=== PATIENT | female | born 1975 | race Two or more races ===

== ENCOUNTER 2020-05-03 08:18 | Inpatient (IN) | payer MEDICAID, OTHER ==
[~2020-05-03] VITALS: Ht 165.1 cm; Wt 81.6 kg
[2020-05-03 09:17] LABS: MEAN CORPUSCULAR HEMOGLOBIN 16.8 pg (28.0-32.0); MEAN CORPUSCULAR VOLUME 60.8 fL (81.0-99.0); MEAN PLATELET VOLUME 8.5 fl (7.4-10.4); PLATELET 330 x1000/uL (130-400); RED BLOOD CELL COUNT 3.42 mill/uL (4.2-5.4); RED CELL DISTRIBUTION WIDTH 22.5 % (11.6-14.6)
[2020-05-03 09:24] LABS: CHLORIDE 108 mEq/L (98-107); HEMATOCRIT. 20.8 % (36.0-48.0); HEMOGLOBIN. 5.8 g/dL (12.0-16.0)
[2020-05-03 09:27] LABS: PROTHROMBIN TIME 10.2 sec (9.6-11.0)
[2020-05-03 09:28] LABS: ETHANOL BLOOD < 10 mg/dL
[2020-05-03 09:46] LABS: NUCLEATED RED BLOOD CELLS 1 /100 WBC
[2020-05-03 09:47] LABS: PLATELET ESTIMATE NORMAL
[2020-05-03 10:08] LABS: HCG SCREEN NEGATIVE
[2020-05-03] MEDS ORDERED: MORPHINE SULFATE 4 MG/ML CPJ (NOT FOR IM USE) IV ONE ×2 (12:00→15:45)
[2020-05-03 12:36] LABS: CLARITY URINE CLOUDY (CLEAR); COLOR URINE RED (YELLOW); KETONES URINE NEGATIVE (NEGATIVE); LEUKOCYTE ESTERASE URINE 2+ (NEGATIVE); NITRITE URINE NEGATIVE (NEGATIVE); OCCULT BLOOD URINE 3+ (NEGATIVE); PH URINE 8.5 (4.5-8.0); PROTEIN URINE 2+ (NEGATIVE); SPECIFIC GRAVITY URINE 1.023 (1.005-1.030); UROBILINOGEN URINE 0.2 E.U./dL (0.2-1.0)
[2020-05-03] MEDS ORDERED: CEFTRIAXONE 1 G PREMIX 50 ML IV ONE (14:30)
[2020-05-03] MEDS ORDERED: IOHEXOL-300 100 ML BOTTLE ONE (14:47)
[2020-05-03 18:15] VITALS: BP 131/63
[2020-05-03 20:00] VITALS: BP 129/68
[2020-05-03 20:02] LABS: HEMATOCRIT 24.5 % (36.0-48.0); HEMOGLOBIN 7.6 g/dL (12.0-16.0)
[2020-05-03] MEDS: IBUPROFEN 800MG TABLET PO PRN (20:37)
[2020-05-04] VITALS (12 sets, daily range): BP systolic 96–145; BP diastolic 50–77
[2020-05-04 06:40] LABS: BASOPHILS % 0.4 % (0.0-2.0); HEMATOCRIT. 26.9 % (36.0-48.0); HEMOGLOBIN. 8.2 g/dL (12.0-16.0); LYMPHOCYTES % 31.4 % (20.0-50.0); MEAN CORPUSCULAR HEMOGLOBIN 21.9 pg (28.0-32.0); MEAN CORPUSCULAR VOLUME 71.5 fL (81.0-99.0); MEAN PLATELET VOLUME 8.8 fl (7.4-10.4); MONOCYTES % 11.6 % (2.0-8.0); NEUTROPHILS % 54.6 % (40.0-76.0); PLATELET 230 x1000/uL (130-400); RED BLOOD CELL COUNT 3.77 mill/uL (4.2-5.4); RED CELL DISTRIBUTION WIDTH 30.2 % (11.6-14.6)
[2020-05-04] MEDS: IBUPROFEN 800MG TABLET PO PRN (08:37)
[2020-05-04] MEDS: FERROUS SULFATE 325MG TABLET PO SCH ×2 (08:37→12:15)
[2020-05-04] MEDS ORDERED: MULTIVITAMINS,THER W-MINERALS TABLET PO SCH (09:00)
[2020-05-04 12:18] LABS: PLATELET ESTIMATE NORMAL
== END 2020-05-04 13:45 | disposition home or self-care (01) | DRG 532 ==
LOC: ER 08:18 → 6EST 11:33 → ENRESERV 17:44
PROVIDERS: ADMIT Obstetrics & Gynecology; ATTEND Obstetrics & Gynecology
PROC: 30233N1 Transfusion of Nonautologous Red Blood Cells into Peripheral Vein, Percutaneous Approach (ICD-10-PCS; principal; 2020-05-04)
DX: D25.1 Intramural leiomyoma of uterus (principal); D25.2 Subserosal leiomyoma of uterus; D64.9 Anemia, unspecified; E87.2 Acidosis; E87.6 Hypokalemia; I51.7 Cardiomegaly; M79.7 Fibromyalgia; N93.8 Other specified abnormal uterine and vaginal bleeding; N39.0 Urinary tract infection, site not specified; Z80.3 Family history of malignant neoplasm of breast; Z82.3 Family history of stroke; Z87.891 Personal history of nicotine dependence; Z98.891 History of uterine scar from previous surgery
CPT/HCPCS: 36415; 71045; 74177; 76830; 76856; 80053; 80320; 81003; 83605; 84703; 85014; 85018; 85025; 86850; 86900; 86920; 93005; 93976; 99285; J0696; J2270; P9016; Q9967; G0480